=== PATIENT | male | born 1970 | race Caucasian/White ===

== ENCOUNTER 2020-04-10 14:16 | Emergency (ER) | payer BC ==
--- NOTE | 2020-04-10 15:13 | EDM.PDOC ---
ED HPI GENERAL MEDICAL PROBLEM - General Chief Complaint: Allergic Reaction Stated Complaint: BEE STING Time Seen by Provider: 04/10/20 14:20 - History of Present Illness INITIAL COMMENTS - FREE TEXT/NARRATIVE: Patient with a bee sting to his right arm, he took Benadryl and gave himself an EpiPen before he got here and he denies any shortness of breath or swelling. Patient says previously he thinks he may have had an allergic reaction to a bug bite, he denies any lightheadedness or swelling in the oropharynx and no wheezes - Related Data Allergies Allergy/AdvReac Type Severity Reaction Status Date / Time No Known Allergies Allergy Verified 04/10/20 14:24 Home Meds: Home Meds NK [No Known Home Meds] 04/10/20 [History] Past Medical History Musculoskeletal History: Reports: Fracture - Past Surgical History Musculoskeletal Surgical History: Reports: Hip Replacement Social & Family History - Tobacco Use Smoking Status *Q: Heavy Tobacco Smoker Years of Tobacco use: 20 Packs/Tins Daily: 1.5 - Caffeine Use Caffeine Use: Reports: Coffee, Energy Drinks - Alcohol Use Days Per Week of Alcohol Use: 7 Number of Drinks Per Day: 4 Total Drinks Per Week: 28 - Recreational Drug Use Recreational Drug Use: No ED ROS ALLERGIC REACTION - Review of Systems Review Of Systems: Comprehensive ROS is negative, except as noted in HPI. ED EXAM GENERAL NO PERIP PULSE - Physical Exam Exam: See Below Exam Limited By: No Limitations General Appearance: Alert Head: Atraumatic Respiratory/Chest: No Respiratory Distress Cardiovascular: Normal Peripheral Pulses GI/Abdominal: Normal Bowel Sounds Back Exam: Normal Inspection Extremities: Other (There is a rash over the patient's right elbow consistent with a bug bite, no obvious hives) Neurological: Alert, Oriented Course - Vital Signs Text/Narrative:: Patient did well here in the ER had no shortness of breath and we will send him out on this for the following diagnosis Last Recorded V/S: Last Vital Signs Temp 97.4 F 04/10/20 14:20 Pulse 98 04/10/20 14:20 Resp 18 04/10/20 14:20 BP 126/79 04/10/20 14:20 Pulse Ox 100 04/10/20 14:20 Departure - Departure Time of Disposition: 15:13 Disposition: Home, Self-Care 01 Condition: Fair Clinical Impression: Bee sting - Discharge Information Instructions: Bee, Wasp, or Hornet Sting, Adult Referrals: PCP,None [Primary Care Provider] - Sepsis Event Note (ED) - Evaluation Sepsis Screening Result: No Definite Risk - Focused Exam Vital Signs: Vital Signs Temp Pulse Resp BP Pulse Ox 04/10/20 14:20 97.4 F 98 18 126/79 100
== END 2020-04-10 15:43 | disposition home or self-care (01) ==
LOC: JP.ED 14:16
DX: T63.441A Toxic effect of venom of bees, accidental (unintentional), initial encounter (principal); F17.210 Nicotine dependence, cigarettes, uncomplicated
CPT/HCPCS: 99282